=== PATIENT | female | born 2000 | race Caucasian/White ===

== ENCOUNTER 2024-08-31 01:08 | Emergency (ER) | payer OTHER ==
[~2024-08-31] VITALS: Ht 162.6 cm; Wt 76.4 kg
[2024-08-31 01:14] VITALS: BP 126/74; PULSE 86; RESP 18; TEMP 98.5; O2SAT 98
[2024-08-31] MEDS: KETOROLAC TROMETHAMINE 30 MG/ML VIAL IM ONE (02:51)
[2024-08-31] MEDS: ACETAMINOPHEN 325 MG TABLET PO ONE (02:51)
[2024-08-31 03:05] LABS: BASOPHILS % (AUTO) 0.4 % (0.0-2.0); EOSINOPHILS % (AUTO) 2.2 % (1.0-6.0); HEMATOCRIT 35.8 % (36-46); HEMOGLOBIN 12.2 g/dL (12.0-16.0); LYMPHOCYTES # (AUTO) 2.3 K/uL (1.0-4.8); LYMPHOCYTES % (AUTO) 34.3 % (22.0-44.0); MEAN CORPUSCULAR HEMOGLOBIN 32.2 pg (26.0-34.0); MEAN CORPUSCULAR HGB CONC 34.2 G/dL (31.0-37.0); MEAN CORPUSCULAR VOLUME 94 fL (80-100); MONOCYTES # (AUTO) 0.6 K/uL (0.1-1.0); MONOCYTES % (AUTO) 8.3 % (2.0-9.0); NEUTROPHILS # (AUTO) 3.7 K/uL (1.8-7.7); NEUTROPHILS % (AUTO) 54.8 % (40.0-70.0); PLATELET COUNT (AUTO) 287 K/uL (150-450); WHITE BLOOD COUNT (AUTO) 6.7 K/uL (4.5-11.0)
[2024-08-31 03:10] LABS: ANION GAP 7 mmol/L (8-16); CALCIUM, TOTAL 9.4 mg/dL (8.8-10.5); CARBON DIOXIDE 27 mmol/L (22-29); CHLORIDE 104 mmol/L (98-107); GLOMERULAR FILTR. RATE CALC > 60 mL/min (>60); GLUCOSE,RANDOM 94 mg/dL (70-110); POTASSIUM 3.8 mmol/L (3.5-5.1); SODIUM SERUM 138 mmol/L (136-145); UREA NITROGEN, BLOOD 13 mg/dL (7-18)
[2024-08-31 03:21] LABS: B-TYPE NATRIURETIC PEPTIDE 16 pg/mL (0-100)
== END 2024-08-31 04:05 | disposition home or self-care (01) ==
LOC: EMS 01:08
DX: R06.02 Shortness of breath (principal); M54.6 Pain in thoracic spine
CPT/HCPCS: 99285; 71045; 80048; 83880; 84703; 85025; 36415; 93005; 96372; J1885

== ENCOUNTER 2024-12-23 07:43 | Emergency (ER) | payer OTHER ==
[~2024-12-23] VITALS: Ht 157.5 cm; Wt 76.3 kg
[2024-12-23 07:57] VITALS: TEMP 97.6
[2024-12-23] MEDS ORDERED: SULF15DR26 OD (08:42)
[2024-12-23] MEDS ORDERED: ACET-66 PO (08:42)
[2024-12-23 08:56] VITALS: BP 120/70; PULSE 81; RESP 18; O2SAT 97
== END 2024-12-23 08:57 | disposition home or self-care (01) ==
LOC: EMS 07:48
DX: H00.011 Hordeolum externum right upper eyelid (principal)
CPT/HCPCS: 99283; Z7502